=== PATIENT | female | born 1970 | race Caucasian/White ===

== ENCOUNTER → 2017-01-16 | Outpatient (CLI) | payer OTHER | LOC: EXRD 13:53 | DX: M21.611 Bunion of right foot (principal); M20.41 Other hammer toe(s) (acquired), right foot; M79.673 Pain in unspecified foot | CPT/HCPCS: 73630 ==

== ENCOUNTER → 2021-08-06 | Outpatient (CLI) | payer BC ==
[~2021-08-06] MED LIST: ASPIRIN CHEWABL81 MG PO; ELIQUIS5 MG PO; ESTRADIOL1 MG PO; FLECAINIDE ACET50 MG PO; HYDROCHLOROTH12.5 MG PO; LOPRESSOR50 MG PO; NORVASC 5 MG TAB5 MG PO; OSTEO BI-FLEX1 EAC1 PO; PREDNISONE 20 M20 MG PO; PREDNISONE20 MG PO; PREDNISONE5 MG/5 ML PO; PROTONIX40 MG PO; PROVENTIL HFA6.7 GM INH; TAMBOCOR 100 M100 MG PO; VITAMIN C PO; WOMEN'S DAILY1 EAC1 PO
[2021-08-06 11:43] LABS: HEMOGLOBIN 14.7 gm/dl (12.3-15.3); RED BLOOD COUNT 4.9 M/UL (4.00-5.10); WHITE BLOOD COUNT 11.1 K/UL (4.5-11.0)
[2021-08-06 12:03] LABS: BUN/CREATININE RATIO 30 (0-10)
== END ==
LOC: OPSV2 10:30
PROVIDERS: Orthopaedic Surgery
DX: Z01.818 Encounter for other preprocedural examination (principal); G56.01 Carpal tunnel syndrome, right upper limb
CPT/HCPCS: 36415; 80048; 85025; 93005

== ENCOUNTER → 2021-08-13 | Day surgery (SDC) | payer BC ==
[~2021-08-13] VITALS: Ht 170.2 cm; Wt 93.4 kg
[~2021-08-13] MED LIST changes: +HYDROCODON-ACE1 EAC4 PO
== END | disposition home or self-care (01) ==
LOC: OR 05:23
DX: G56.01 Carpal tunnel syndrome, right upper limb (principal); I10 Essential (primary) hypertension; I51.9 Heart disease, unspecified; I48.91 Unspecified atrial fibrillation; Z20.822 Contact with and (suspected) exposure to COVID-19; Z90.710 Acquired absence of both cervix and uterus; Z79.01 Long term (current) use of anticoagulants; Z88.8 Allergy status to other drugs, medicaments and biological substances
CPT/HCPCS: J0690; J1100; J2001; J2250; J2405; J2704; J3010; J7120